=== PATIENT | female | born 1955 | race African-American/Black ===

== ENCOUNTER 2018-04-22 12:10 | Emergency (ER) | payer BC ==
--- NOTE | 2018-04-22 12:28 | ED ---
HPI Chest Pain - HPI Summary HPI Summary: 62 year old F BIB EMS to [facility] accompanied by and son complains of racing heart with a chest discomfort since 05:30 today, worse since 11:30 today. The patient rates the discomfort 5/10 in severity. Symptoms aggravated by nothing. Symptoms alleviated by nothing. When she woke up this morning, patient noted dizziness since resolved. Now, patient reports racing heart, shakiness, stiffness, and tingliness in her fingers, bottom of feet, and back of neck. She additionally reports weakness and shortness of breath. She denies bilateral lower extremity edema. She and her family are visiting from [place]. - History of Current Complaint Chief Complaint: EDChestPainROMI Time Seen by Provider: 04/22/18 12:14 Hx Obtained From: Patient Onset/Duration: Started Hours Ago - 05:30 today, Still Present Timing: Constant Current Severity: Moderate Pain Intensity: 5 Pain Scale Used: 0-10 Numeric Chest Pain Location: Diffuse Aggravating Factor(s): Nothing Alleviating Factor(s): Nothing Associated Signs and Symptoms: Positive: Negative - bilateral lower extremity edema, Other: - racing heart, shakiness, stiffness, and tingliness in her fingers, bottom of feet, and back of neck. She additionally reports weakness and shortness of breath - Allergy/Home Medications Allergies/Adverse Reactions: Allergies Allergy/AdvReac Type Severity Reaction Status Date / Time No Known Allergies Allergy Verified 04/22/18 12:11 PMH/Surg Hx/FS Hx/Imm Hx Previously Healthy: No Endocrine/Hematology History: Denies: Hx Diabetes Cardiovascular History: Denies: Hx Hypertension - Surgical History Surgery Procedure, Year, and Place: section x3. Ankle Infectious Disease History: No Infectious Disease History: Denies: Traveled Outside the [place] in Last 30 Days - Family History Known Family History: Negative: Cardiac Disease, Hypertension, Diabetes - Social History Hx Substance Use: No Substance Use Type: Reports: None Hx Tobacco Use: No Smoking Status (MU): Never Smoked Tobacco Review of Systems Positive: Other - shakiness, stiffness Positive: Chest Pain, Other - racing heart Positive: Shortness Of Breath Negative: Edema - BLE Neurological: Other - tingliness in her fingers, bottom of feet, and back of neck Positive: Weakness All Other Systems Reviewed And Are Negative: Yes Physical Exam - Summary Physical Exam Summary: Appearance: The patient is well-nourished in no acute distress and in no acute pain. Skin: The skin is warm and dry and skin color reflects adequate perfusion. HEENT: The head is normocephalic and atraumatic. The pupils are equal and reactive. The conjunctivae are clear and without drainage. Nares are patent and without drainage. Mouth reveals moist mucous membranes and the throat is without erythema and exudate. The external ears are intact. The ear canals are patent and without drainage. The tympanic membranes are intact. Neck: The neck is supple with full range of motion and non-tender. There are no carotid bruits. There is no neck vein distension. Respiratory: Chest is non-tender. Lungs are clear to auscultation and breath sounds are symmetrical and equal. Cardiovascular: Heart is regular rate and rhythm. There is no murmur or rub auscultated. There is no peripheral edema and pulses are symmetrical and equal. Abdomen: The abdomen is soft and non-tender. There are normal bowel sounds heard in all four quadrants and there is no organomegaly palpated. Musculoskeletal: There is no back tenderness noted. Extremities are non-tender with full range of motion. There is good capillary refill. There is no peripheral edema or calf tenderness elicited. Neurological: Patient is alert and oriented to person, place and time. The patient has symmetrical motor strength in all four extremities. Cranial nerves are grossly intact. Deep tendon reflexes are symmetrical and equal in all four extremities. Psychiatric: The patient has an appropriate affect and does not exhibit any anxiety or depression. Triage Information Reviewed: Yes Vital Signs On Initial Exam: Initial Vitals Temp Pulse Resp BP Pulse Ox 98.3 F 92 23 120/101 100 04/22/18 12:12 04/22/18 12:12 04/22/18 12:12 04/22/18 12:12 04/22/18 12:12 Vital Signs Reviewed: Yes Diagnostics - Vital Signs Vital Signs Temp Pulse Resp BP Pulse Ox 04/22/18 12:12 98.3 F 92 23 120/101 100 - Laboratory Result Diagrams: 04/22/18 12:48 04/22/18 12:48 Lab Statement: Any lab studies that have been ordered have been reviewed, and results considered in the medical decision making process. - EKG 1215 Cardiac Rate: NL - 91 bpm EKG Rhythm: Sinus Rhythm EKG Interpretation: Non-specific anterolateral changes Re-Evaluation - Re-Evaluation First Eval Re-Evaluation Time: 14:48 Comment: patient feels fine and is aware that we are awaiting second troponin test Second Eval Re-Evaluation Time: 16:12 Comment: Patient is updated on her second troponin test, which was normal. She is agreeable to discharge. Chest Pain Course/Dx - Course Course Of Treatment: Ms. Sim presented with a complaint that she felt nauseated and a little dizzy when she got up this morning. They drove here from [place] and when she was here she began to feel lightheaded, her heart racing, chest pressure, shortness of breath and tingling in her hands and feet. The symptoms have since resolved. She was kept on monitor here and worked up with labs including d-dimer and delayed troponin. These and her EKG were within normal limits and she remained stable and nontoxic in appearance. I reassured her that I didn't think anything immediately dangerous was occurring but that she would need follow-up for more workup. - Diagnoses Provider Diagnoses: Near syncope Discharge - Sign-Out/Discharge Documenting (check all that apply): Patient Departure - Discharge - Discharge Plan Condition: Stable Disposition: HOME Patient Education Materials: Near Syncope (ED) Referrals: No Primary Care Phys,NOPCP [Primary Care Provider] - Additional Instructions: Follow up with your primary care provider in 2 days. RETURN TO THE EMERGENCY DEPARTMENT FOR NEW OR WORSENING SYMPTOMS. - Billing Disposition and Condition Condition: STABLE Disposition: Home - Attestation Statements Document Initiated by Scribe: Yes Documenting Scribe: Katalina Torres Provider For Whom Kalen is Documenting (Include Credential): Golden Whitten MD Scribe Attestation: I, Katalina Torres, scribed for Golden Whitten MD on 04/22/18 at 1804. Scribe Documentation Reviewed: Yes Provider Attestation: The documentation as recorded by the Katalina sanchez accurately reflects the service I personally performed and the decisions made by me, Golden Whitten MD
[2018-04-22 12:57] LABS: ABS Basophils 0 10^3/ul (0-0.2); ABS Eosinophils 0.1 10^3/ul (0-0.6); ABS Lymphocytes 1.3 10^3/ul (1.0-4.8); ABS Monocytes 0.3 10^3/ul (0-0.8); ABS Neutrophils 2.6 10^3/ul (1.5-7.7); ABS Nucleated RBC 0 10^3/ul; Eosinophil % 2.9 % (0-6); Hematocrit 39 % (35-47); Hemoglobin 12.8 g/dl (12.0-16.0); Mean Corpuscular HGB Conc 33 g/dl (31-36); Mean Corpuscular Hemoglobin 29 pg (27-31); Mean Corpuscular Volume 87 fL (80-97); Nucleated Red Blood Cells % 0.1; Platelet Count 366 10^3/ul (150-450); Red Blood Count 4.42 10^6/ul (4.00-5.40); Red Cell Distribution Width 15 % (10.5-15); White Blood Count 4.5 10^3/ul (3.5-10.8)
[2018-04-22 13:13] LABS: EGFR Non-African American 71.9 (>60)
[2018-04-22 16:19] VITALS: BP 115/65
== END 2018-04-22 16:20 | disposition home or self-care (01) ==
LOC: ED 12:10
DX: R55 Syncope and collapse (principal)
CPT/HCPCS: 36415; 80053; 83605; 83735; 84443; 84484; 85025; 85379; 93005; 99283